=== PATIENT | female | born 1935 | race Caucasian/White ===

== ENCOUNTER → 2020-09-24 | Outpatient (CLI) | payer MEDICARE ==
[~2020-09-24] MED LIST: ALPRAZOLAM0.5 MG PO; ASPIR 8181 MG PO; COREG 12.5MG12.5 MG PO; COREG 3.125M3.125 MG PO; ESTRACE0.5 MG PO; FERROUS SULFAT325 M2 PO; NORVASC 5 MG TAB5 MG PO; PROTONIX40 MG PO; TYLENOL W/CODEIN1 E1 PO; ZESTRIL 40 MG T40 MG PO; ZOCOR 10 MG TAB10 MG PO
== END ==
LOC: HEART 5 09-02 15:30
DX: I50.22 Chronic systolic (congestive) heart failure (principal); I42.0 Dilated cardiomyopathy; I42.8 Other cardiomyopathies; I08.3 Combined rheumatic disorders of mitral, aortic and tricuspid valves; I27.20 Pulmonary hypertension, unspecified; R93.1 Abnormal findings on diagnostic imaging of heart and coronary circulation; Z95.0 Presence of cardiac pacemaker
CPT/HCPCS: 93306

== ENCOUNTER → 2021-08-11 | Outpatient (CLI) | payer MEDICARE ==
[~2021-08-11] MED LIST changes: +AMLODIPINE BESY10 MG PO; +CEPHALEXIN500 MG PO; +CLINDAMYCIN HC300 MG PO; +DULCOLAX STOOL100 MG PO; +FUROSEMIDE20 MG PO; +HYDROCODON-ACE1 EAC4 PO; +LINZESS145 MCG PO; +MECLIZINE HCL12.5 MG PO; +XIIDRA 5% EYEBOTH
[2021-08-11 10:52] LABS: HEMOGLOBIN 11.7 gm/dl (12.3-15.3); RED BLOOD COUNT 3.44 M/UL (4.00-5.10); WHITE BLOOD COUNT 9.3 K/UL (4.5-11.0)
== END ==
LOC: RAD 09:31
PROVIDERS: Internal Medicine Cardiovascular Disease
DX: I50.22 Chronic systolic (congestive) heart failure (principal); I45.9 Conduction disorder, unspecified; I44.2 Atrioventricular block, complete; M43.8X4 Other specified deforming dorsopathies, thoracic region
CPT/HCPCS: 36415; 71046; 80048; 85025

== ENCOUNTER → 2021-08-13 | Outpatient (CLI) | payer MEDICARE | LOC: CATH 11:49 | DX: Z45.010 Encounter for checking and testing of cardiac pacemaker pulse generator [battery] (principal); I42.0 Dilated cardiomyopathy; I11.0 Hypertensive heart disease with heart failure; I50.22 Chronic systolic (congestive) heart failure; I44.2 Atrioventricular block, complete; I48.0 Paroxysmal atrial fibrillation; I34.0 Nonrheumatic mitral (valve) insufficiency; E78.00 Pure hypercholesterolemia, unspecified; Z88.7 Allergy status to serum and vaccine; Z88.1 Allergy status to other antibiotic agents; Z79.82 Long term (current) use of aspirin; Z79.899 Other long term (current) drug therapy; Z20.822 Contact with and (suspected) exposure to COVID-19 | CPT/HCPCS: 99152; 99153; C2621; J2250; J3010; J3370; J7040; J7050 ==

== ENCOUNTER 2021-08-16 19:32 | Emergency (ER) | payer MEDICARE ==
[2021-08-16 20:51] LABS: HEMOGLOBIN 10.2 gm/dl (12.3-15.3); RED BLOOD COUNT 2.89 M/UL (4.00-5.10); WHITE BLOOD COUNT 7.2 K/UL (4.5-11.0)
[2021-08-16 21:15] LABS: BUN/CREATININE RATIO 18 (0-10)
== END 2021-08-16 22:56 | disposition home or self-care (01) ==
LOC: ER1 19:32
PROVIDERS: Family Medicine
DX: R25.1 Tremor, unspecified (principal); E87.1 Hypo-osmolality and hyponatremia; D64.9 Anemia, unspecified; F41.9 Anxiety disorder, unspecified; Z95.0 Presence of cardiac pacemaker
CPT/HCPCS: 80048; 83735; 84439; 84443; 85025; 93005; 99284